=== PATIENT | male | born 1995 | race African-American/Black ===

== ENCOUNTER 2022-04-06 01:44 | Emergency (ER) | payer MEDICAID ==
[~2022-04-06] VITALS: Ht 180.3 cm; Wt 93.0 kg
[2022-04-06 02:00] VITALS: BP 156/106
[2022-04-06] MEDS ORDERED: ACETAMINOPHEN 500MG TABLET PO ONE (02:15)
== END 2022-04-06 04:56 | disposition home or self-care (01) ==
LOC: ER 01:44
DX: S00.83XA Contusion of other part of head, initial encounter (principal); X58.XXXA Exposure to other specified factors, initial encounter; Y93.89 Activity, other specified; Y92.89 Other specified places as the place of occurrence of the external cause; Y99.8 Other external cause status
CPT/HCPCS: 70486; 99284